=== PATIENT | female | born 1970 | race Caucasian/White ===

== ENCOUNTER → 2016-07-13 | Outpatient (CLI) | payer BC ==
--- NOTE | 2016-07-13 13:36 | CARD ---
APPROVED REPORT INDICATION Atypical chest pain RISK FACTORS Obesity Reason : Patient complained of pain PROCEDURE The patient underwent an exercise Stress Test using the Cornelio Protocol. Blood pressure, heart rate, a nd EKG were monitored. An Echocardiogram was performed by bench lay out technician in four stages in quad fashion. At peak stress four se lected images were obtained and placed side by side with resting images for comparison. STRESS ECHO FINDINGS The resting Echocardiogram showed normal left ventricular contractility with an estimated Ejection Fr action of about 65 %. Normal augmentation of myocardial wall segments using a 16 segment model. Test Type: Exercise Stress Nurse/Tech: M Roger CVNP Resting ECG: Sinus rhythm non specific abnormalities Resting Heart Rate: 64 bpm Resting Blood Pressure: 120/60mmHg Pretest Chest Pain: None Stress Symptoms mild dyspnea POST EXERCISE Reason for Termination: fatigue Max HR: 179 bpm 98% of Maximum Predicted HR: 176 bpm Exercise duration: 9 min:sec, Stage Exercise capacity: 13.4METs Max Blood Pressure: 150/56mmHg Blood Pressure response to exercise: Normal blood pressure response during stress. Chest Pain: No. INTERPRETATION Stress EKG Conclusion: peak EKG sinus tachy without acute ischemic changes STRESS ECG Stress EKG shows no significant changes. Preliminary Notification Critical Value: No <Conclusion> Good exercise capacity with 13.4 Mets achieved. Normal EKG at baseline and with peak stress. Normal resting wall motion and EF of 55% with appropriate augmentation with peak stress and an EF > 7 0% Low risk study
== END | disposition home or self-care (01) ==
LOC: ECHO 08:12
PROVIDERS: ATTEND Internal Medicine Cardiovascular Disease
DX: E66.9 Obesity, unspecified (principal)
CPT/HCPCS: 93307; 93350

== ENCOUNTER 2016-08-04 14:45 | Emergency (ER) | payer BC ==
[~2016-08-04] VITALS: Ht 170.2 cm; Wt 75.0 kg
[2016-08-04 14:56] VITALS: BP 163/82
--- NOTE | 2016-08-04 15:30 | EKG ---
[address] [address] Test Date: 2016-08-04 Test Time: 15:03:37 Pat Name: EDITH GRANGER Department: Room: Gender: F Transonic Engineer: AMILCAR : 1970 Requested By: AGUSTINA REYES Order Number: [id number] Reading MD: Mehdi Niño Measurements Intervals [place] Rate: 94 P: 44 CT: 194 QRS: 45 QRSD: 84 T: 31 QT: 354 QTc: 443 Interpretive Statements SINUS RHYTHM PVC Electronically Signed On 08-09-2016 14:01:23 CDT by Mehdi Niño
--- NOTE | 2016-08-05 11:49 | ED.ADGEN ---
Past History Past Medical History: Anxiety, CAD, Depression Past Surgical History: No Surgical History Alcohol Use: None Drug Use: None Adult General Chief Complaint Chief Complaint Palpitations HPI HPI Patient is a 46-year-old female with history of CAD, palpitations, anxiety who presents with occasional palpitations for the past 2 months. Patient describes occasional skipped beat with sensation of her heart speeding or racing after the event. Patient has been evaluated by her steward/stewardess room with plans of placing a loop event recorder. Patient also underwent a stress test approximately 3 weeks ago which she passed. Patient denies shortness breath, nausea sweats chest pain or chest tightness she had with the skipped beats. She denies any oteh Review of Systems Review of Systems ROS as per HPI Allergies Allergies Allergies Coded Allergies Type Severity Reaction Last Updated Verified No Known Drug Allergies 08/04/16 No Physical Exam Physical Exam Constitutional: Well developed, well nourished, no acute distress, non-toxic appearance. HENT: Normocephalic, atraumatic, bilateral external ears normal, oropharynx moist, no oral exudates, nose normal. Eyes: PERRLA, EOMI, conjunctiva normal, no discharge. Neck: Normal range of motion, no tenderness, supple, no stridor. Cardiovascular:Heart rate regular rhythm, no murmur, occasional ectopy. Lungs & Thorax: Bilateral breath sounds clear to auscultation Abdomen: Bowel sounds normal, soft, no tenderness, no masses, no pulsatile masses. Skin: Warm, dry, no erythema, no rash. Back: No tenderness, no CVA tenderness. Extremities: No tenderness, no cyanosis, no clubbing, ROM intact, no edema. [] Neurologic: Alert and oriented X 3, normal motor function, normal sensory function, no focal deficits noted. [] Psychologic: Affect normal, judgement normal, mood normal. [] Current Patient Data Vital Signs Vital Signs Date Time Temp Pulse Resp B/P (MAP) Pulse Ox O2 Delivery O2 Flow Rate FiO2 08/04/16 14:56 90 20 99 Room Air EKG EKG [EKG: Normal sinus rhythm, occasional ectopy] Radiology/Procedures Radiology/Procedures [EKG: NSR, occasional PVC.] Course & Med Decision Making Course & Med Decision Making Pertinent Labs and Imaging studies reviewed. (See chart for details) [Patient reassured and instructed to follow up with her PCP and steward/stewardess room as planned. Return precautions. Final Impression Final Impression [1. Palpitations] Problems: Dragon Disclaimer Dragdenzel Disclaimer This electronic medical record was generated, in whole or in part, using a voice recognition dictation system. AGUSTINA REYES DO August 05, 2016 11:49
== END 2016-08-04 15:31 | disposition home or self-care (01) ==
LOC: ER 14:45
DX: R00.2 Palpitations (principal); I25.10 Atherosclerotic heart disease of native coronary artery without angina pectoris
CPT/HCPCS: 93005; 99283-25

== ENCOUNTER → 2017-02-28 | Outpatient (CLI) | payer BC ==
--- NOTE | 2017-02-28 16:30 | RAD ---
DATE: February 28, 2017 EXAM: MAMMO ROSSY SCREENING BILATERAL HISTORY: Routine screening. COMPARISON: February 18, 2016. March 01, 2014. TECHNIQUE: 2D digital CC and MLO views were obtained. 3D tomosynthesis imaging was performed in the CC and MLO projections. This study was interpreted with the benefit of Computerized Aided Detection (CAD). FINDINGS: The breast parenchyma is heterogeneously dense, category C, which may obscure small masses. Small mass in the outer right breast is stable. Previous ultrasound workup demonstrated small cyst and intraparenchymal lymph node. There is no worrisome mass. There are no suspicious groupings of microcalcifications IMPRESSION: Stable mammogram with benign findings. BI-RADS CATEGORY: 2 BENIGN FINDING RECOMMENDED FOLLOW-UP: 12M 12 MONTH FOLLOW-UP PQRS compliance statement: Patient information was entered into a reminder system with a target due date for the next mammogram. Mammography is a sensitive method for finding small breast cancers, but it does not detect them all and is not a substitute for careful clinical examination. A negative mammogram does not negate a clinically suspicious finding and should not result in delay in biopsying a clinically suspicious abnormality. "Our facility is accredited by the [employer] Mammography Program."
== END | disposition home or self-care (01) ==
LOC: MAMMO 15:16
PROVIDERS: ATTEND General Practice
DX: Z12.31 Encounter for screening mammogram for malignant neoplasm of breast (principal)
CPT/HCPCS: 77063; G0202; 77067